=== PATIENT | female | born 1945 | race Caucasian/White ===

== ENCOUNTER 2018-09-17 11:15 | Observation (INO) | payer MEDICARE, MEDICAID ==
[2018-09-17 11:57] LABS: % LYMPHOCYTES 22.8 % (20.0-50.0); % MONOCYTES 4.3 % (2.0-10.0); % NEUTROPHILS 71.9 % (40.0-80.0); EOSINOPHILE ABSOLUTE 0.1 Th/cmm (0.1-0.4); HEMATOCRIT 40.4 % (41.0-60); HEMOGLOBIN 13.5 gm/dL (12-16); LYMPHOCYTE ABSOLUTE 1.8 Th/cmm (1.5-3.0); MEAN CELL VOLUME 94.6 fl (81-100); MEAN CORPUSCULAR HEMOGLOBIN 31.5 pg (27.0-31.0); MEAN CORPUSCULAR HGB CONC 33.3 pg (28.0-36.0); MONOCYTE ABSOLUTE 0.3 Th/cmm (0.3-1.0); NEUTROPHILE ABSOLUTE 5.5 Th/cmm (1.8-8.0); PLATELET COUNT 259 Th/cmm (150-400); RED BLOOD COUNT 4.27 Mil/cmm (3.80-5.20); RED CELL DISTRIBUTION WIDTH 13.8 % (11.5-20.0); WHITE BLOOD COUNT 7.7 Th/cmm (4.8-10.8)
--- NOTE | 2018-09-17 12:06 | ED Physician Chart ---
ED Chief Complaint/HPI - Patient Information Date Seen:: 09/17/18 Time Seen:: 11:25 Chief Complaint:: weakness History of Present Illness:: weakness Vitals:: Vital Signs - 8 hr 09/17/18 11:25 Temp 98.0 F HR 86 RR 20 BP 158/89 O2 Sat % 100 Historian:: Patient Review:: Nurse's Note Reviewed ED Review of Systems - Review of Systems General/Constitutional: No fever, No chills, No weight loss, No weakness, No diaphoresis, No edema, No loss of appetite Skin: No skin lesions, No rash, No bruising Head: No headache, No light-headedness Eyes: No loss of vision, No pain, No diplopia ENT: No earache, No nasal drainage, No sore throat, No tinnitus Neck: No neck pain, No swelling, No thyromegaly, No stiffness, No mass noted Cardio Vascular: No chest pain, No palpitations, No PND, No orthopnea, No edema Pulmonary: No SOB, No cough, No sputum, No wheezing GI: No nausea, No vomiting, No diarrhea, No pain, No melena, No hematochezia, No constipation, No hematemesis G/U: No dysuria, No frequency, No hematuria Musculoskeletal: No bone or joint pain, No back pain, No muscle pain Endocrine: No polyuria, No polydipsia Psychiatric: No prior psych history, No depression, No anxiety, No suicidal ideation Hematopoietic: No bruising, No lymphadenopathy Allergic/Immuno: No urticaria, No angioedema Neurological: No syncope, No focal symptoms, No weakness, No paresthesia, No headache, No seizure, No dizziness, No confusion, No vertigo ED Past Medical History - Past Medical History Obtainable: Yes Past Medical History: HTN, DM ED Physical Exam - Physical Examination General/Constitutional: Awake, Alert, No distress, GCS 15, Non-toxic appearing, Ambulatory Other Gen/Cons comments:: overweight patient. Head: Atraumatic Eyes: Lids, conjuctiva normal, PERRL, EOMI Skin: Nl inspection, No rash, No skin lesions, No ecchymosis, Well hydrated, No lymphadenopathy ENMT: External ears, nose nl Neck: Nontender, Full ROM w/o pain, No nuchal rigidity, No stridor Respiratory: Nl effort/Exclusion, Clear to Auscultation, No Wheeze/Rhonchi/Rales Cardio Vascular: RRR, No murmur, gallop, rubs, NL S1 S2 GI: No tenderness/rebounding/guarding, No organomegaly, No hernia, Normal BS's, Nondistended, No mass/bruits, No McBurney tenderness : No CVA tenderness Extremities: No tenderness or effusion, Full ROM, normal strength in all extremities, Normal digits & nails Other Extremities comments:: trace edema. no calf tenderness. Neuro/Psych: Alert/oriented, Normal sensory exam, Normal motor strength, Judgement/insight normal, Mood normal, Normal gait, No focal deficits Misc: Normal back, No paraspinal tenderness ED Labs/Radiology/EKG Results - Lab Results Results: Laboratory Tests 09/17/18 09/17/18 11:52 11:58 WBC 7.7 RBC 4.27 Hgb 13.5 Hct 40.4 L MCV 94.6 MCH 31.5 H MCHC Differential 33.3 RDW 13.8 Plt Count 259 MPV 8.0 Neutrophils % 71.9 Lymphocytes % 22.8 Monocytes % 4.3 Eosinophils % 1.0 Basophils % 0.0 POC Glucose 229 H ED Assessment - Assessment General Assessment: Dr. Hahn called at 12 p.m. to admit patient for placement. EKG from 13:27:44 p.m. reveals normal sinus rhythm with a flipped t wave in V1. patient does not have her list of meds. I informed Dr. Hahn who told me that he would make sure that we received a list. No list. We called [facility] pharmacy to find out a list of her medications and they told the nurse that they were actively out at lunch at 1:[address] Hahn came by at 2:10 p.m. and said to admit the patient to med/surg. He said that her medications are Metformin 500 mg po bid; aspirin and Losartan 50 mg po q day. ED Septic Shock - . Is Septic Shock (SBP<90, OR Lactate>4 mmol\L) present?: No - <6hrs of presentation: Vital Signs: Vital Signs - 8 hr 09/17/18 11:25 Temp 98.0 F HR 86 RR 20 BP 158/89 O2 Sat % 100 ED Reassessment (Disposition) - Reassessment Reassessment Condition:: Unchanged - Diagnosis Diagnosis:: Weakness Diabetes mellitus Hypertension Low magnesium Elevated bilirubin Elevated AST Elevated alk phos Proteinuria Ketones in urine Urobilinogen in urine - Patient Disposition Discharge/Transfer:: Acute Care w/in this hosp Admitted to:: Med/Surg Condition at Disposition:: Stable, Unchanged
[2018-09-17 12:23] LABS: ALB/GLOB RATIO 0.9 (1.0-1.8); ALBUMIN 3.5 gm/dL (3.7-5.3); ALKALINE PHOSPHATASE 135 U/L (34-104); ANION GAP 14.6 (7.0-16.0); BILIRUBIN,TOTAL 1.3 mg/dL (0.3-1.0); BUN - UREA NITROGEN 23 mg/dL (7-25); CALCIUM SERUM 9.6 mg/dL (8.6-10.3); CARBON DIOXIDE 25.5 mEq/L (21.0-31.0); CHLORIDE 102 mEq/L (98-107); CREATININE - SERUM 0.9 mg/dL (0.6-1.2); GLUCOSE 234 mg/dL (70-105); MAGNESIUM 1.8 mg/dL (1.9-2.7); PHOSPHOROUS 3.6 mg/dL (2.5-5.0); POTASSIUM SERUM 4.1 mEq/L (3.5-5.1); SGOT 52 U/L (13-39); SGPT/ALT 51 U/L (7-52); SODIUM SERUM 138 mEq/L (136-145); TOTAL PROTEIN,SERUM 7.4 gm/dL (6.0-8.3)
[2018-09-17] MEDS ORDERED: Maalox 30 mL Cup PO ONE (12:26)
[2018-09-17 13:29] LABS: URINE BILIRUBIN NEGATIVE (NEGATIVE); URINE BLOOD TRACE (NEGATIVE); URINE GLUCOSE (UA) NEGATIVE (NEGATIVE); URINE KETONE 15 mg/dL (NEGATIVE); URINE LEUKOCYTE ESTERASE NEGATIVE (NEGATIVE); URINE MICROSCOPIC INDICATED? YES; URINE NITRATE NEGATIVE (NEGATIVE); URINE PROTEIN 100 mg/dL (NEGATIVE); URINE SOURCE CATH
[2018-09-17 13:32] LABS: URINE COLOR YELLOW
[2018-09-17 13:33] LABS: URINE CLARITY HAZY (CLEAR)
[2018-09-17 13:40] LABS: URINE BACTERIA FEW /hpf (NONE SEEN); URINE EPITHELIAL CELLS OCCASIONAL /lpf (FEW); URINE RBC 0-2 /hpf (0-5); URINE WBC 0-2 /hpf (0-5)
[2018-09-17 14:06] LABS: AMPHETAMINE URINE NEGATIVE (NEGATIVE); BARBITURATES URINE NEGATIVE (NEGATIVE); BENZODIAZEPINES QUAL URINE NEGATIVE (NEGATIVE); CANNABINOID THC NEGATIVE (NEGATIVE); COCAINE METABOLITE QUAL URINE NEGATIVE (NEGATIVE); METHADONE URINE NEGATIVE (NEGATIVE); METHAMPHETAMINES QUAL URINE NEGATIVE (NEGATIVE); OPIATES (MORPHINE) QUAL. URINE POSITIVE (NEGATIVE); PHENCYCLIDINE (PCP) URINE NEGATIVE (NEGATIVE); TRICYCLICS (TCA) QUAL. URINE NEGATIVE (NEGATIVE)
[2018-09-17] MEDS ORDERED: Maalox 30 mL Cup ONE (14:19)
[2018-09-17 15:02] VITALS: BP 122/57
[2018-09-17] MEDS ORDERED: Albuterol Nebulizer 2.5mg/3mL HHN PRN (17:01)
[2018-09-17] MEDS ORDERED: INSULIN ASPART SLIDING SCALE 100 UNITS/ML UNIT SUBQ SCH (18:00)
[2018-09-17] MEDS: INSULIN ASPART SLIDING SCALE 100 UNITS/ML UNIT SUBQ SCH ×2 (18:31→23:26)
[2018-09-17] MEDS: Sodium Chloride 0.9% 1,000 ML IV SCH (18:33)
[2018-09-17] MEDS ORDERED: Albuterol Nebulizer 2.5mg/3mL HHN SCH (19:00)
[2018-09-18 04:39] LABS: % BASOPHILS 0.3 % (0.0-2.0); % EOSINOPHILS 2.2 % (0.0-5.0); % NEUTROPHILS 59.5 % (40.0-80.0); EOSINOPHILE ABSOLUTE 0.2 Th/cmm (0.1-0.4); HEMATOCRIT 37.6 % (41.0-60); HEMOGLOBIN 12.1 gm/dL (12-16); LYMPHOCYTE ABSOLUTE 3.2 Th/cmm (1.5-3.0); MEAN CELL VOLUME 96.2 fl (81-100); MEAN CORPUSCULAR HEMOGLOBIN 30.9 pg (27.0-31.0); MEAN CORPUSCULAR HGB CONC 32.2 pg (28.0-36.0); MEAN PLATELET VOLUME 8.3 fl; MONOCYTE ABSOLUTE 0.4 Th/cmm (0.3-1.0); NEUTROPHILE ABSOLUTE 5.5 Th/cmm (1.8-8.0); PLATELET COUNT 240 Th/cmm (150-400); RED BLOOD COUNT 3.91 Mil/cmm (3.80-5.20); RED CELL DISTRIBUTION WIDTH 13.7 % (11.5-20.0)
[2018-09-18 05:13] LABS: WHITE BLOOD COUNT 9.3 Th/cmm (4.8-10.8)
[2018-09-18 05:25] LABS: ALB/GLOB RATIO 0.9 (1.0-1.8); ANION GAP 13.2 (7.0-16.0); BUN - UREA NITROGEN 23 mg/dL (7-25); CALCIUM SERUM 8.9 mg/dL (8.6-10.3); CARBON DIOXIDE 25.5 mEq/L (21.0-31.0); CHLORIDE 106 mEq/L (98-107); CREATININE - SERUM 0.8 mg/dL (0.6-1.2); POTASSIUM SERUM 3.7 mEq/L (3.5-5.1); SGOT 40 U/L (13-39); SODIUM SERUM 141 mEq/L (136-145); TOTAL PROTEIN,SERUM 6.3 gm/dL (6.0-8.3)
[2018-09-18 05:26] LABS: ALKALINE PHOSPHATASE 111 U/L (34-104); CHOLESTEROL 165 mg/dL (<200); HDL -HIGH DENSITY LIPOPROTEIN 46 mg/dL (23-92); SGPT/ALT 41 U/L (7-52); TRIGLYCERIDES 89 mg/dL (<150)
[2018-09-18 05:27] LABS: GLUCOSE 127 mg/dL (70-105)
[2018-09-18] MEDS: INSULIN ASPART SLIDING SCALE 100 UNITS/ML UNIT SUBQ SCH ×3 (06:19→17:48)
--- NOTE | 2018-09-18 07:49 | Diagnostic Imaging Report ---
CHEST X-RAY: AP view INDICATION: , Bilateral lower extremity edema, crackles COMPARISON: None FINDINGS: Chronic lung changes are seen with linear densities of the left lung. No focal consolidation or definite effusions. Heart size at the upper limits of normal. Degenerative changes of the spine and shoulders are noted. IMPRESSION: Linear densities of the left lung which may be due to subsegmental atelectasis versus scarring. No focal consolidation or evidence of alejandra CHF.
--- NOTE | 2018-09-18 08:28 | Diagnostic Imaging Report ---
Portable chest x-ray HISTORY: Shortness of breath Allowing for portable technique and a poor inspiration, the heart size appears normal. No focal pulmonary processes. No hilar or mediastinal abnormalities. IMPRESSION: 1. No acute abnormalities
[2018-09-18] MEDS: POLYETHYLENE GLYCOL 3350 17 GM PACK PO SCH ×3 (09:49→16:27)
--- NOTE | 2018-09-18 10:28 | Diagnostic Imaging Report ---
KUB abdominal film HISTORY: Pain, fecal impaction There is a mild to moderately distended stool-filled rectum. Bowel gas pattern otherwise nonspecific. No free intraperitoneal air. Surgical clips are seen in the right upper quadrant consistent with a prior cholecystectomy. IMPRESSION: 1. Mild to moderately distended stool-filled rectum
--- NOTE | 2018-09-18 15:48 | Consultation ---
DATE OF CONSULTATION: 09/17/2018 REFERRING PHYSICIAN: Dr. Hahn. Thank you very much Dr. Hanh for this consultation. HISTORY OF PRESENT ILLNESS: This is a 73-year-old female who was admitted for weakness, some shortness of breath and the patient was told has history of COPD. The patient denies any shortness of breath at this time. States her legs are getting weaker and not able to walk around much. PAST MEDICAL HISTORY: History of diabetes and hypertension. SOCIAL HISTORY: No smoking, drinking, drug use. REVIEW OF SYSTEMS: GENERAL: Some weakness and fatigue. CARDIOVASCULAR: No chest pain or palpitation. RESPIRATORY: Shortness of breath. GASTROINTESTINAL: No nausea or vomiting. PHYSICAL EXAMINATION: GENERAL: Awake, alert, not in acute distress. VITAL SIGNS: Temperature 97.2, pulse 74, respirations 18, blood pressure 140/70, saturation 90%. HEENT: Atraumatic, normocephalic. Pupils are equal and reactive to light and accommodation. Ears, nose and throat normal. NECK: Supple. No JVD. CHEST: There are breath sounds bilaterally, no wheezing or crackles. HEART: Regular. ABDOMEN: Soft. EXTREMITIES: No edema. LABORATORY DATA: WBC 7.7, hemoglobin 13.5 and 40.4, platelets 259. Sodium 138, potassium 4.0, BUN 23, creatinine 0.9, glucose 234, magnesium 1.8. Troponin is negative. IMPRESSION: This is a 73-year-old female with hypertension, diabetes, weakness and less likely has chronic obstructive pulmonary disease or asthma. PLAN: Agree with albuterol as needed for now. The patient is asymptomatic. We will continue Pulmonary supportive care. We will do a chest x-ray as well. We will follow the patient with you. Thank you very much for this consultation. JOB# [id number]
--- NOTE | 2018-09-18 16:31 | History & Physical ---
ADMIT DATE: 09/17/2018 HISTORY OF PRESENT ILLNESS: The patient is a very elderly female patient known to have history of hypertension, history of diabetes, history of asthma, history of COPD. The patient is on multiple medications, see the reconciliation sheet. She is complaining of severe weakness, confusion, was complaining of not being eating and the patient was sent to the Emergency Room, was admitted with failure to thrive and uncontrolled diabetes, hypertension, rule out UTI. PAST MEDICAL HISTORY: Hypertension, diabetes. PHYSICAL EXAMINATION: GENERAL: Alert, awake. The patient is somewhat confused. HEAD: Normal. ENT: Normal. NECK: Supple, nontender. LUNGS: Clear. CARDIOVASCULAR SYSTEM: S1, S2 heard. ABDOMEN: Soft. Bowel sounds are heard. CENTRAL NERVOUS SYSTEM: Decreased sensorium. LABORATORY DATA: EKG showed sinus rhythm, flipped T waves in V1. DIAGNOSES: Severe weakness, rule out acute coronary syndrome, diabetes, hypertension and low magnesium, elevated ALT as well as a history of asthma, history of chronic obstructive pulmonary disease. PLAN: The patient is being admitted and I will go ahead and do the workup and have Cardiology see the patient. I will follow the patient. JOB# [id number]
[2018-09-19] MEDS: Sodium Chloride 0.9% 1,000 ML IV SCH (00:41)
[2018-09-19] MEDS: INSULIN ASPART SLIDING SCALE 100 UNITS/ML UNIT SUBQ SCH ×4 (00:44→17:09)
--- NOTE | 2018-09-19 07:54 | Consultation ---
DATE OF CONSULTATION: 09/18/2018 INPATIENT GASTROINTESTINAL CONSULTATION CONSULTING PHYSICIAN: Dr. Hahn. REASON FOR CONSULTATION: Failure to thrive. HISTORY OF PRESENT ILLNESS: The patient is a 73-year-old female with reported medical history of type 2 diabetes, who was brought into the hospital by family members for apparent weakness at home. Of note, the history is very scant, the ER note is essentially empty and the patient is not able to give me much of the history. She does report that she came into the ER for an evaluation and there is report that she felt weak at home. The consult was placed for failure to thrive; however, the patient is eating 100% of her meals as per the nursing staff and she certainly does not appear emaciated. Her main complaint using a chemical sales representative to speak with her is constipation and she says she has not had a bowel movement in 2-3 days. She denies any abdominal pain, change in her bowel habits, vomiting, hematemesis or melena. PAST MEDICAL HISTORY: Type 2 diabetes. She denies other chronic illnesses at this time. PAST SURGICAL HISTORY: Reports a in the past. FAMILY HISTORY: Noncontributory. SOCIAL HISTORY: The patient lives at home. She does not smoke, drink or use illicit drugs. ALLERGIES: There are no reported allergies to medications. REVIEW OF SYSTEMS: A 12-point review of systems was performed with the patient and is negative other than the pertinent positives mentioned in the history of present illness. CURRENT MEDICATIONS: Include albuterol, Lasix, insulin, losartan, metformin, sodium chloride. PHYSICAL EXAMINATION: VITAL SIGNS: Blood pressure is 149/68, pulse 68 beats per minute, temperature 97.3, respiratory rate 12, oxygenation is 96%. GENERAL: The patient is lying flat in her back, alert and oriented x 3. She is in no apparent distress. HEAD, EARS, EYES, NOSE AND THROAT: Normocephalic and atraumatic appearing head. Pupils are equal and reactive to light. Extraocular muscles appear to be intact. There are moist mucous membranes. NECK: Supple. No JVD or thyromegaly or lymphadenopathy. CHEST: Clear to auscultation bilaterally. CARDIOVASCULAR: S1 and S2 are present, regular rate and rhythm. ABDOMEN: Obese, soft, nontender to palpation. There is no guarding or rebound. No fluid distention. EXTREMITIES: Nonpitting edema is noted bilaterally. Pulses are not present. SKIN: There is no obvious jaundice. LABORATORY DATA AND DIAGNOSTIC STUDIES: White blood cell count 9.3, hemoglobin 12.1, platelet count is 240. Sodium 141, BUN 23, creatinine 0.8. Total bilirubin is 1.0, AST 40, ALT 41. Urinalysis was performed, which was essentially negative. There is no abdominal imaging. IMPRESSION: This is a 73-year-old female with type 2 diabetes, brought into the hospital for weakness. 1. Reported weakness. 2. Constipation. 3. Reported failure to thrive. DISCUSSION: At this point, it is unclear to me why the patient is admitted to the hospital as she has been observed to be eating most of her meals and really has no pain at all or other symptoms to speak of. She does have some constipation and we can go ahead and get a KUB to look at this more carefully and start laxative therapy. She does not seem to need any sort of G-tube assistance as she is eating her meals and she has no blood in her stool or any GI symptoms whatsoever aside from the constipation. RECOMMENDATIONS: 1. We will get a KUB. 2. Start MiraLax b.i.d. 3. If there is a fecal impaction, we can do enemas. 4. Continue diet as tolerated. 5. Workup of the patient's weakness as per primary. Thank you for allowing me to participate in her care. Please call with any further questions. [facility]# [phone]
--- NOTE | 2018-09-19 08:25 | GI Progress Note ---
Subjective - Review of Systems Service Date: 09/19/18 Subjective: Doing well, had several BMs Objective - Results Result Diagrams: 09/18/18 04:10 09/18/18 04:10 Recent Labs: Laboratory Last Values WBC 9.3 Th/cmm (4.8-10.8) D 09/18/18 04:10 RBC 3.91 Mil/cmm (3.80-5.20) 09/18/18 04:10 Hgb 12.1 gm/dL (12-16) 09/18/18 04:10 Hct 37.6 % (41.0-60) L 09/18/18 04:10 MCV 96.2 fl (81-100) 09/18/18 04:10 MCH 30.9 pg (27.0-31.0) 09/18/18 04:10 MCHC Differential 32.2 pg (28.0-36.0) 09/18/18 04:10 RDW 13.7 % (11.5-20.0) 09/18/18 04:10 Plt Count 240 Th/cmm (150-400) 09/18/18 04:10 MPV 8.3 fl 09/18/18 04:10 Neutrophils % 59.5 % (40.0-80.0) 09/18/18 04:10 Lymphocytes % 34.0 % (20.0-50.0) 09/18/18 04:10 Monocytes % 4.0 % (2.0-10.0) 09/18/18 04:10 Eosinophils % 2.2 % (0.0-5.0) 09/18/18 04:10 Basophils % 0.3 % (0.0-2.0) 09/18/18 04:10 Sodium 141 mEq/L (136-145) 09/18/18 04:10 Potassium 3.7 mEq/L (3.5-5.1) 09/18/18 04:10 Chloride 106 mEq/L (98-107) 09/18/18 04:10 Carbon Dioxide 25.5 mEq/L (21.0-31.0) 09/18/18 04:10 Anion Gap 13.2 (7.0-16.0) 09/18/18 04:10 BUN 23 mg/dL (7-25) 09/18/18 04:10 Creatinine 0.8 mg/dL (0.6-1.2) 09/18/18 04:10 Est GFR ( Amer) TNP 09/18/18 04:10 Est GFR (Non-Af Amer) TNP 09/18/18 04:10 BUN/Creatinine Ratio 28.8 09/18/18 04:10 Glucose 127 mg/dL (70-105) H D 09/18/18 04:10 POC Glucose 126 MG/DL (70 - 105) H 09/19/18 06:23 Whole Bld Lactic Acid 1.36 mmol/L (0.60-1.99) 09/17/18 11:52 Calcium 8.9 mg/dL (8.6-10.3) 09/18/18 04:10 Phosphorus 3.6 mg/dL (2.5-5.0) 09/17/18 11:52 Magnesium 1.8 mg/dL (1.9-2.7) L 09/17/18 11:52 Total Bilirubin 1.0 mg/dL (0.3-1.0) 09/18/18 04:10 AST 40 U/L (13-39) H 09/18/18 04:10 ALT 41 U/L (7-52) 09/18/18 04:10 Alkaline Phosphatase 111 U/L (34-104) H 09/18/18 04:10 Troponin I < 0.01 ng/mL (0.01-0.05) L 09/17/18 11:52 B-Natriuretic Peptide 58.7 pg/mL (5.0-100.0) 09/18/18 04:10 Total Protein 6.3 gm/dL (6.0-8.3) 09/18/18 04:10 Albumin 3.0 gm/dL (3.7-5.3) L 09/18/18 04:10 Globulin 3.3 gm/dL 09/18/18 04:10 Albumin/Globulin Ratio 0.9 (1.0-1.8) L 09/18/18 04:10 Triglycerides 89 mg/dL (<150) 09/18/18 04:10 Cholesterol 165 mg/dL (<200) 09/18/18 04:10 LDL Cholesterol Direct 110 mg/dL (75-193) 09/18/18 04:10 HDL Cholesterol 46 mg/dL (23-92) 09/18/18 04:10 TSH 0.32 uIU/ml (0.34-5.60) L 09/18/18 04:10 Urine Source CATH 09/17/18 13:18 Urine Color YELLOW 09/17/18 13:18 Urine Clarity HAZY (CLEAR) 09/17/18 13:18 Urine pH 6.0 (4.6 - 8.0) 09/17/18 13:18 Ur Specific [place] 1.025 (1.005-1.030) 09/17/18 13:18 Urine Protein 100 mg/dL (NEGATIVE) H 09/17/18 13:18 Urine Glucose (UA) NEGATIVE mg/dL (NEGATIVE) 09/17/18 13:18 Urine Ketones 15 mg/dL (NEGATIVE) H 09/17/18 13:18 Urine Blood TRACE (NEGATIVE) 09/17/18 13:18 Urine Nitrate NEGATIVE (NEGATIVE) 09/17/18 13:18 Urine Bilirubin NEGATIVE (NEGATIVE) 09/17/18 13:18 Urine Urobilinogen 4.0 E.U./dL (0.2 - 1.0) H 09/17/18 13:18 Ur Leukocyte Esterase NEGATIVE (NEGATIVE) 09/17/18 13:18 Urine RBC 0-2 /hpf (0-5) 09/17/18 13:18 Urine WBC 0-2 /hpf (0-5) 09/17/18 13:18 Ur Epithelial Cells OCCASIONAL /lpf (FEW) 09/17/18 13:18 Urine Bacteria FEW /hpf (NONE SEEN) 09/17/18 13:18 Urine Mucus FEW /lpf (FEW) 09/17/18 13:18 Urine Opiates Screen POSITIVE (NEGATIVE) H 09/17/18 12:30 Urine Methadone Screen NEGATIVE (NEGATIVE) 09/17/18 12:30 Ur Barbiturates Screen NEGATIVE (NEGATIVE) 09/17/18 12:30 Ur Tricyclics Screen NEGATIVE (NEGATIVE) 09/17/18 12:30 Ur Phencyclidine Scrn NEGATIVE (NEGATIVE) 09/17/18 12:30 Amphetamines Screen NEGATIVE (NEGATIVE) 09/17/18 12:30 U Methamphetamines Scrn NEGATIVE (NEGATIVE) 09/17/18 12:30 U Benzodiazepines Scrn NEGATIVE (NEGATIVE) 09/17/18 12:30 U Cocaine Metab Screen NEGATIVE (NEGATIVE) 09/17/18 12:30 U Cannabinoids Screen NEGATIVE (NEGATIVE) 09/17/18 12:30 - Physical Exam Vitals and I&O: Vital Signs Temp 97.8 F 09/19/18 07:49 Pulse 84 09/19/18 08:12 Resp 20 09/19/18 08:12 BP 107/51 09/19/18 08:04 Pulse Ox 94 09/19/18 08:12 Intake & Output 09/18/18 09/19/18 09/19/18 18:59 06:59 18:59 Intake Total 1000 1550 Balance 1000 1550 Weight (lbs) 78.018 kg Intake: Intake, IV Amount 1000 Sodium Chloride 0.9% 1, 1000 000 ml @ 50 mls/hr IV . Q20H [facility] Rx#:[id number] Oral 1550 Other: # Voids 2 Weight Source Bedscale Active Medications: Current Medications Acetaminophen (Tylenol) 650 mg PO Q6H PRN PRN Reason: Pain (Mild) Stop: 11/17/18 12:56 Last Admin: 09/18/18 13:32 Dose: 650 mg Albuterol Sulfate (Albuterol 2.5mg/3ml Neb Ud) 2.5 mg HHN Q4HRT PRN PRN Reason: Congestion Stop: 11/16/18 18:59 Furosemide (Lasix) 40 mg PO DAILY [facility] Stop: 11/17/18 08:59 Last Admin: 09/18/18 08:59 Dose: 40 mg Sodium Chloride (Nacl 0.9%) 1,000 mls @ 50 mls/hr IV .Q20H [facility] Stop: 11/16/18 18:59 Last Admin: 09/19/18 00:41 Dose: 50 mls/hr Insulin Aspart (Novolog Insulin Sliding Scale) 0 units SUBQ Q6HR [facility]; Protocol Stop: 11/16/18 18:29 Last Admin: 09/19/18 06:27 Dose: Not Given Losartan Potassium (Cozaar) 50 mg PO DAILY [facility] Stop: 11/17/18 08:59 Last Admin: 09/19/18 08:04 Dose: Not Given Metformin HCl (Glucophage) 500 mg PO BIDWM [facility] Stop: 11/17/18 07:59 Last Admin: 09/18/18 17:48 Dose: 500 mg Polyethylene Glycol (Miralax) 17 gm PO BID [facility] Stop: 11/17/18 09:14 Last Admin: 09/18/18 16:27 Dose: 17 gm General: Alert, Oriented x3 HEENT: Atraumatic Neck: Supple Cardiovascular: Regular rate Abdomen: Bowel sounds, Soft, no Tender, no Hepatomegaly, no Splenomegaly, no Distended, no Rebound Psych/Mental Status: Mental status NL Assessment/Plan - Assessment Assessment: # Constipation # Mildly elevated transaminase # Weakness Pt responding to laxatives, and will have enema today. Colonoscopy can be performed as outpt Will get US and labs to eval the liver, but suspect the mild degree of transaminase elevation is due to fatty liver disease Plan: - laxatives - enema prn - US abdomen - viral and autoimmune serologies Stable from a GI perspective
[2018-09-19] MEDS: POLYETHYLENE GLYCOL 3350 17 GM PACK PO SCH ×2 (08:32→16:58)
--- NOTE | 2018-09-19 12:24 | Infectious Disease Prog Note ---
Infectious Disease Subjective - Review of Systems Service Date: 09/19/18 Subjective: No pain,no dysuria. no cough. Nochest pain, No abd pain. There is no new change, no fever. Infectious Disease Objective - Results Result Diagrams: 09/18/18 04:10 09/18/18 04:10 Recent Labs: Laboratory Last Values WBC 9.3 Th/cmm (4.8-10.8) D 09/18/18 04:10 RBC 3.91 Mil/cmm (3.80-5.20) 09/18/18 04:10 Hgb 12.1 gm/dL (12-16) 09/18/18 04:10 Hct 37.6 % (41.0-60) L 09/18/18 04:10 MCV 96.2 fl (81-100) 09/18/18 04:10 MCH 30.9 pg (27.0-31.0) 09/18/18 04:10 MCHC Differential 32.2 pg (28.0-36.0) 09/18/18 04:10 RDW 13.7 % (11.5-20.0) 09/18/18 04:10 Plt Count 240 Th/cmm (150-400) 09/18/18 04:10 MPV 8.3 fl 09/18/18 04:10 Neutrophils % 59.5 % (40.0-80.0) 09/18/18 04:10 Lymphocytes % 34.0 % (20.0-50.0) 09/18/18 04:10 Monocytes % 4.0 % (2.0-10.0) 09/18/18 04:10 Eosinophils % 2.2 % (0.0-5.0) 09/18/18 04:10 Basophils % 0.3 % (0.0-2.0) 09/18/18 04:10 Sodium 141 mEq/L (136-145) 09/18/18 04:10 Potassium 3.7 mEq/L (3.5-5.1) 09/18/18 04:10 Chloride 106 mEq/L (98-107) 09/18/18 04:10 Carbon Dioxide 25.5 mEq/L (21.0-31.0) 09/18/18 04:10 Anion Gap 13.2 (7.0-16.0) 09/18/18 04:10 BUN 23 mg/dL (7-25) 09/18/18 04:10 Creatinine 0.8 mg/dL (0.6-1.2) 09/18/18 04:10 Est GFR ( Amer) TNP 09/18/18 04:10 Est GFR (Non-Af Amer) TNP 09/18/18 04:10 BUN/Creatinine Ratio 28.8 09/18/18 04:10 Glucose 127 mg/dL (70-105) H D 09/18/18 04:10 POC Glucose 234 MG/DL (70 - 105) H 09/19/18 12:04 Whole Bld Lactic Acid 1.36 mmol/L (0.60-1.99) 09/17/18 11:52 Calcium 8.9 mg/dL (8.6-10.3) 09/18/18 04:10 Phosphorus 3.6 mg/dL (2.5-5.0) 09/17/18 11:52 Magnesium 1.8 mg/dL (1.9-2.7) L 09/17/18 11:52 Total Bilirubin 1.0 mg/dL (0.3-1.0) 09/18/18 04:10 AST 40 U/L (13-39) H 09/18/18 04:10 ALT 41 U/L (7-52) 09/18/18 04:10 Alkaline Phosphatase 111 U/L (34-104) H 09/18/18 04:10 Troponin I < 0.01 ng/mL (0.01-0.05) L 09/17/18 11:52 B-Natriuretic Peptide 58.7 pg/mL (5.0-100.0) 09/18/18 04:10 Total Protein 6.3 gm/dL (6.0-8.3) 09/18/18 04:10 Albumin 3.0 gm/dL (3.7-5.3) L 09/18/18 04:10 Globulin 3.3 gm/dL 09/18/18 04:10 Albumin/Globulin Ratio 0.9 (1.0-1.8) L 09/18/18 04:10 Triglycerides 89 mg/dL (<150) 09/18/18 04:10 Cholesterol 165 mg/dL (<200) 09/18/18 04:10 LDL Cholesterol Direct 110 mg/dL (75-193) 09/18/18 04:10 HDL Cholesterol 46 mg/dL (23-92) 09/18/18 04:10 TSH 0.32 uIU/ml (0.34-5.60) L 09/18/18 04:10 Urine Source CATH 09/17/18 13:18 Urine Color YELLOW 09/17/18 13:18 Urine Clarity HAZY (CLEAR) 09/17/18 13:18 Urine pH 6.0 (4.6 - 8.0) 09/17/18 13:18 Ur Specific [place] 1.025 (1.005-1.030) 09/17/18 13:18 Urine Protein 100 mg/dL (NEGATIVE) H 09/17/18 13:18 Urine Glucose (UA) NEGATIVE mg/dL (NEGATIVE) 09/17/18 13:18 Urine Ketones 15 mg/dL (NEGATIVE) H 09/17/18 13:18 Urine Blood TRACE (NEGATIVE) 09/17/18 13:18 Urine Nitrate NEGATIVE (NEGATIVE) 09/17/18 13:18 Urine Bilirubin NEGATIVE (NEGATIVE) 09/17/18 13:18 Urine Urobilinogen 4.0 E.U./dL (0.2 - 1.0) H 09/17/18 13:18 Ur Leukocyte Esterase NEGATIVE (NEGATIVE) 09/17/18 13:18 Urine RBC 0-2 /hpf (0-5) 09/17/18 13:18 Urine WBC 0-2 /hpf (0-5) 09/17/18 13:18 Ur Epithelial Cells OCCASIONAL /lpf (FEW) 09/17/18 13:18 Urine Bacteria FEW /hpf (NONE SEEN) 09/17/18 13:18 Urine Mucus FEW /lpf (FEW) 09/17/18 13:18 Urine Opiates Screen POSITIVE (NEGATIVE) H 09/17/18 12:30 Urine Methadone Screen NEGATIVE (NEGATIVE) 09/17/18 12:30 Ur Barbiturates Screen NEGATIVE (NEGATIVE) 09/17/18 12:30 Ur Tricyclics Screen NEGATIVE (NEGATIVE) 09/17/18 12:30 Ur Phencyclidine Scrn NEGATIVE (NEGATIVE) 09/17/18 12:30 Amphetamines Screen NEGATIVE (NEGATIVE) 09/17/18 12:30 U Methamphetamines Scrn NEGATIVE (NEGATIVE) 09/17/18 12:30 U Benzodiazepines Scrn NEGATIVE (NEGATIVE) 09/17/18 12:30 U Cocaine Metab Screen NEGATIVE (NEGATIVE) 09/17/18 12:30 U Cannabinoids Screen NEGATIVE (NEGATIVE) 09/17/18 12:30 - Physical Exam Vitals and I&O: Vital Signs Temp 98.2 F 09/19/18 11:37 Pulse 78 09/19/18 11:37 Resp 18 09/19/18 11:37 BP 117/69 09/19/18 11:37 Pulse Ox 97 09/19/18 11:37 Intake & Output 09/18/18 09/19/18 09/19/18 18:59 06:59 18:59 Intake Total 1000 1550 Balance 1000 1550 Weight (lbs) 78.018 kg Intake: Intake, IV Amount 1000 Sodium Chloride 0.9% 1, 1000 000 ml @ 50 mls/hr IV . Q20H [facility] Rx#:[id number] Oral 1550 Other: # Voids 2 Weight Source Bedscale Active Medications: Current Medications Acetaminophen (Tylenol) 650 mg PO Q6H PRN PRN Reason: Pain (Mild) Stop: 11/17/18 12:56 Last Admin: 09/19/18 10:51 Dose: 650 mg Albuterol Sulfate (Albuterol 2.5mg/3ml Neb Ud) 2.5 mg HHN Q4HRT PRN PRN Reason: Congestion Stop: 11/16/18 18:59 Furosemide (Lasix) 40 mg PO DAILY [facility] Stop: 11/17/18 08:59 Last Admin: 09/19/18 08:32 Dose: 40 mg Sodium Chloride (Nacl 0.9%) 1,000 mls @ 50 mls/hr IV .Q20H [facility] Stop: 11/16/18 18:59 Last Admin: 09/19/18 00:41 Dose: 50 mls/hr Insulin Aspart (Novolog Insulin Sliding Scale) 0 units SUBQ Q6HR [facility]; Protocol Stop: 11/16/18 18:29 Last Admin: 09/19/18 06:27 Dose: Not Given Losartan Potassium (Cozaar) 50 mg PO DAILY [facility] Stop: 11/17/18 08:59 Last Admin: 09/19/18 08:04 Dose: Not Given Metformin HCl (Glucophage) 500 mg PO BIDWM [facility] Stop: 11/17/18 07:59 Last Admin: 09/19/18 08:33 Dose: 500 mg Polyethylene Glycol (Miralax) 17 gm PO BID [facility] Stop: 11/17/18 09:14 Last Admin: 09/19/18 08:32 Dose: 17 gm General: no acute distress, well developed, well nourished HEENT: atraumatic, normocephalic, PERRLA, EOMI Neck: supple, no thyromegaly Cardiovascular: S1S2, regular Lungs: clear to auscultation bilaterally, clear to percussion Abdomen: soft, no tender, no distended Extremities: no cyanosis, no clubbing, no edema Neurological: awake, alert, oriented Skin: intact Infectious Disease Assmt/Plan - Assessment Assessment: 1. generalized weakness. 2. DM2, uncontrolled. 3. HTN. 4. Obesity. 5. Constipation. fecal impaction. - Plan Plan: Continue as per consultants. laxatives. us abdomen. Dc plan. Nutritional Asmnt/Malnutr-PDOC - Dietary Evaluation Malnutrition Findings (Please click <Entered> for more info): Nutritional Asmnt/Malnutrition Start: 09/18/18 17: 37 Text: Status: Complete Freq: Protocol: Document 09/18/18 17:37 CATALINA (Rec: 09/18/18 17:58 CATALINA [email or web address]) Nutritional Asmnt/Malnutrition Patient General Information Nutritional Screening High Risk Diagnosis weakness, FTT Pertinent Medical Hx/Surgical Hx HTN, DM, asthma, COPD Subjective Information Pt finished ~75% of lunch today at time of visit. Nursing staff present to translate d/t pt's nicaraguan speaking. Pt states she dislikes beef and pork and prefers to have fish and chicken. Pt states her appetite is good. Nursing noted PO intake: 100% of dinner last night after admit. Per MD note, pt has not had a BM for 1 week. Ht inputted as 5 inch w/ BMI 4640; spoke w/ MICHAEL Garcia who states pt's ht and wt will be reviewed. Currently will input pt's ht as 60 in for this assessment; will update. Current Diet Order/ Nutrition Support CCHO 60 gm Pertinent Medications lasix, novolog, glucophage, miralax, Nacl 0.9% Pertinent Labs 09/18: glucose 127, Alb 3.0, POC 146-190 09/17: glucose 234, Alb 3.5, POC 229-244, Mg 1.8 Nutritional Hx/Data Height 1.52 m Height (Calculated Centimeters) 152.4 Current Weight (lbs) 74.843 kg Weight (Calculated Kilograms) 74.8 Weight (Calculated Grams) 68678.7 [place] Body Weight 100 lb Body Mass Index (BMI) 32.2 Weight Status Obese GI Symptoms Last BM none noted Difficult in: None Food Allergies No Skin Integrity/Comment: non-pitting 1+ edema to lower extremity, intact, roxi 17 Current %PO Good (75-100%) Estimated Nutritional Goals BEE in Kcals: Adj wt of IBW Calories/Kcals/Kg 25-30 (based on adj wt 52.8 kg ) Kcals Calculated 9970-4554 Protein: Adj wt of IBW Protein g/k.0 Protein Calculated 53 g Fluid: ml 7296-9346 (1 ml/kcal) Nutritional Problem 1. Problem Problem Altered nutrition related lab values Etiology hyperglycemia, endocrine dysfunction Signs/Symptoms: glucose 127, POC 146-190 Malnutrition Alert Is there a minimum of two criteria No selected? Query Text:Check all the applicable criteria. A minimum of two criteria are recommended for diagnosis of either severe or non-severe malnutrition. Malnutrition Related to Morbid Obesity Malnutrition related to morbid obesity No Intervention/Recommendation Comments 1. Start low Na 2 gm diet d/t elevated BP and presence of edema 2. Consider modify CCHO diet to 45 gm d/t pt's kcal needs. MD to manage insulin regimen for optimal glycemic control 3. Monitor PO intake, wt, labs and skin integrity 4. F/U as moderate risk in 3-5 days, 09/21-09/23 Expected Outcomes/Goals Expected Outcomes/Goals 1. PO intake to continue meeting at least 75% of all meals 2. Wt stability, edema to dissipate, and nutrition related labs to approach normal limits Reviewed by Meagan Cortez RD
--- NOTE | 2018-09-19 14:03 | Internal Medicine Prog Note ---
Internal Medicine Subjective - Subjective Service Date: 09/19/18 Patient seen and examined:: with staff Patient is:: awake, verbal Per staff patient has:: tolerating meds Internal Medicine Objective - Results Result Diagrams: 09/18/18 04:10 09/18/18 04:10 Recent Labs: Laboratory Last Values WBC 9.3 Th/cmm (4.8-10.8) D 09/18/18 04:10 RBC 3.91 Mil/cmm (3.80-5.20) 09/18/18 04:10 Hgb 12.1 gm/dL (12-16) 09/18/18 04:10 Hct 37.6 % (41.0-60) L 09/18/18 04:10 MCV 96.2 fl (81-100) 09/18/18 04:10 MCH 30.9 pg (27.0-31.0) 09/18/18 04:10 MCHC Differential 32.2 pg (28.0-36.0) 09/18/18 04:10 RDW 13.7 % (11.5-20.0) 09/18/18 04:10 Plt Count 240 Th/cmm (150-400) 09/18/18 04:10 MPV 8.3 fl 09/18/18 04:10 Neutrophils % 59.5 % (40.0-80.0) 09/18/18 04:10 Lymphocytes % 34.0 % (20.0-50.0) 09/18/18 04:10 Monocytes % 4.0 % (2.0-10.0) 09/18/18 04:10 Eosinophils % 2.2 % (0.0-5.0) 09/18/18 04:10 Basophils % 0.3 % (0.0-2.0) 09/18/18 04:10 Sodium 141 mEq/L (136-145) 09/18/18 04:10 Potassium 3.7 mEq/L (3.5-5.1) 09/18/18 04:10 Chloride 106 mEq/L (98-107) 09/18/18 04:10 Carbon Dioxide 25.5 mEq/L (21.0-31.0) 09/18/18 04:10 Anion Gap 13.2 (7.0-16.0) 09/18/18 04:10 BUN 23 mg/dL (7-25) 09/18/18 04:10 Creatinine 0.8 mg/dL (0.6-1.2) 09/18/18 04:10 Est GFR ( Amer) TNP 09/18/18 04:10 Est GFR (Non-Af Amer) TNP 09/18/18 04:10 BUN/Creatinine Ratio 28.8 09/18/18 04:10 Glucose 127 mg/dL (70-105) H D 09/18/18 04:10 POC Glucose 234 MG/DL (70 - 105) H 09/19/18 12:04 Whole Bld Lactic Acid 1.36 mmol/L (0.60-1.99) 09/17/18 11:52 Calcium 8.9 mg/dL (8.6-10.3) 09/18/18 04:10 Phosphorus 3.6 mg/dL (2.5-5.0) 09/17/18 11:52 Magnesium 1.8 mg/dL (1.9-2.7) L 09/17/18 11:52 Total Bilirubin 1.0 mg/dL (0.3-1.0) 09/18/18 04:10 AST 40 U/L (13-39) H 09/18/18 04:10 ALT 41 U/L (7-52) 09/18/18 04:10 Alkaline Phosphatase 111 U/L (34-104) H 09/18/18 04:10 Troponin I < 0.01 ng/mL (0.01-0.05) L 09/17/18 11:52 B-Natriuretic Peptide 58.7 pg/mL (5.0-100.0) 09/18/18 04:10 Total Protein 6.3 gm/dL (6.0-8.3) 09/18/18 04:10 Albumin 3.0 gm/dL (3.7-5.3) L 09/18/18 04:10 Globulin 3.3 gm/dL 09/18/18 04:10 Albumin/Globulin Ratio 0.9 (1.0-1.8) L 09/18/18 04:10 Triglycerides 89 mg/dL (<150) 09/18/18 04:10 Cholesterol 165 mg/dL (<200) 09/18/18 04:10 LDL Cholesterol Direct 110 mg/dL (75-193) 09/18/18 04:10 HDL Cholesterol 46 mg/dL (23-92) 09/18/18 04:10 TSH 0.32 uIU/ml (0.34-5.60) L 09/18/18 04:10 Urine Source CATH 09/17/18 13:18 Urine Color YELLOW 09/17/18 13:18 Urine Clarity HAZY (CLEAR) 09/17/18 13:18 Urine pH 6.0 (4.6 - 8.0) 09/17/18 13:18 Ur Specific [place] 1.025 (1.005-1.030) 09/17/18 13:18 Urine Protein 100 mg/dL (NEGATIVE) H 09/17/18 13:18 Urine Glucose (UA) NEGATIVE mg/dL (NEGATIVE) 09/17/18 13:18 Urine Ketones 15 mg/dL (NEGATIVE) H 09/17/18 13:18 Urine Blood TRACE (NEGATIVE) 09/17/18 13:18 Urine Nitrate NEGATIVE (NEGATIVE) 09/17/18 13:18 Urine Bilirubin NEGATIVE (NEGATIVE) 09/17/18 13:18 Urine Urobilinogen 4.0 E.U./dL (0.2 - 1.0) H 09/17/18 13:18 Ur Leukocyte Esterase NEGATIVE (NEGATIVE) 09/17/18 13:18 Urine RBC 0-2 /hpf (0-5) 09/17/18 13:18 Urine WBC 0-2 /hpf (0-5) 09/17/18 13:18 Ur Epithelial Cells OCCASIONAL /lpf (FEW) 09/17/18 13:18 Urine Bacteria FEW /hpf (NONE SEEN) 09/17/18 13:18 Urine Mucus FEW /lpf (FEW) 09/17/18 13:18 Urine Opiates Screen POSITIVE (NEGATIVE) H 09/17/18 12:30 Urine Methadone Screen NEGATIVE (NEGATIVE) 09/17/18 12:30 Ur Barbiturates Screen NEGATIVE (NEGATIVE) 09/17/18 12:30 Ur Tricyclics Screen NEGATIVE (NEGATIVE) 09/17/18 12:30 Ur Phencyclidine Scrn NEGATIVE (NEGATIVE) 09/17/18 12:30 Amphetamines Screen NEGATIVE (NEGATIVE) 09/17/18 12:30 U Methamphetamines Scrn NEGATIVE (NEGATIVE) 09/17/18 12:30 U Benzodiazepines Scrn NEGATIVE (NEGATIVE) 09/17/18 12:30 U Cocaine Metab Screen NEGATIVE (NEGATIVE) 09/17/18 12:30 U Cannabinoids Screen NEGATIVE (NEGATIVE) 09/17/18 12:30 - Physical Exam Vitals and I&O: Vital Signs Temp 98.2 F 09/19/18 11:37 Pulse 78 09/19/18 11:37 Resp 18 09/19/18 11:37 BP 117/69 09/19/18 11:37 Pulse Ox 97 09/19/18 11:37 Intake & Output 09/18/18 09/19/18 09/19/18 18:59 06:59 18:59 Intake Total 1000 1550 Balance 1000 1550 Weight (lbs) 172 lb Intake: Intake, IV Amount 1000 Sodium Chloride 0.9% 1, 1000 000 ml @ 50 mls/hr IV . Q20H [facility] Rx#:[id number] Oral 1550 Other: # Voids 2 Weight Source Bedscale Active Medications: Current Medications Acetaminophen (Tylenol) 650 mg PO Q6H PRN PRN Reason: Pain (Mild) Stop: 11/17/18 12:56 Last Admin: 09/19/18 10:51 Dose: 650 mg Albuterol Sulfate (Albuterol 2.5mg/3ml Neb Ud) 2.5 mg HHN Q4HRT PRN PRN Reason: Congestion Stop: 11/16/18 18:59 Furosemide (Lasix) 40 mg PO DAILY [facility] Stop: 11/17/18 08:59 Last Admin: 09/19/18 08:32 Dose: 40 mg Sodium Chloride (Nacl 0.9%) 1,000 mls @ 50 mls/hr IV .Q20H [facility] Stop: 11/16/18 18:59 Last Admin: 09/19/18 00:41 Dose: 50 mls/hr Insulin Aspart (Novolog Insulin Sliding Scale) 0 units SUBQ Q6HR [facility]; Protocol Stop: 11/16/18 18:29 Last Admin: 09/19/18 12:43 Dose: Not Given Losartan Potassium (Cozaar) 50 mg PO DAILY [facility] Stop: 11/17/18 08:59 Last Admin: 09/19/18 08:04 Dose: Not Given Metformin HCl (Glucophage) 500 mg PO BIDWM [facility] Stop: 11/17/18 07:59 Last Admin: 09/19/18 08:33 Dose: 500 mg Polyethylene Glycol (Miralax) 17 gm PO BID [facility] Stop: 11/17/18 09:14 Last Admin: 09/19/18 08:32 Dose: 17 gm General: alert HEENT: NC/AT, PERRLA Neck: Supple Lungs: CTAB Cardiovascular: RRR, Normal S1, Normal S2 Abdomen: soft, non-tender, non-distended, positive bowel sound Neurological: alert Internal Medicine Assmt/Plan - Assessment Assessment: generalized weakness. DM2, uncontrolled. HTN. Obesity. - Plan Plan: dc planning once cleared by GI cpm Nutritional Asmnt/Malnutr-PDOC - Dietary Evaluation Malnutrition Findings (Please click <Entered> for more info): Nutritional Asmnt/Malnutrition Start: 09/18/18 17: 37 Text: Status: Complete Freq: Protocol: Document 09/18/18 17:37 CATALINA (Rec: 09/18/18 17:58 CATALINA [email or web address]) Nutritional Asmnt/Malnutrition Patient General Information Nutritional Screening High Risk Diagnosis weakness, FTT Pertinent Medical Hx/Surgical Hx HTN, DM, asthma, COPD Subjective Information Pt finished ~75% of lunch today at time of visit. Nursing staff present to translate d/t pt's romanian speaking. Pt states she dislikes beef and pork and prefers to have fish and chicken. Pt states her appetite is good. Nursing noted PO intake: 100% of dinner last night after admit. Per MD note, pt has not had a BM for 1 week. Ht inputted as 5 inch w/ BMI 4640; spoke w/ RN Radha who states pt's ht and wt will be reviewed. Currently will input pt's ht as 60 in for this assessment; will update. Current Diet Order/ Nutrition Support CCHO 60 gm Pertinent Medications lasix, novolog, glucophage, miralax, Nacl 0.9% Pertinent Labs 09/18: glucose 127, Alb 3.0, POC 146-190 09/17: glucose 234, Alb 3.5, POC 229-244, Mg 1.8 Nutritional Hx/Data Height 5 ft Height (Calculated Centimeters) 152.4 Current Weight (lbs) 165 lb Weight (Calculated Kilograms) 74.8 Weight (Calculated Grams) 65666.7 [place] Body Weight 100 lb Body Mass Index (BMI) 32.2 Weight Status Obese GI Symptoms Last BM none noted Difficult in: None Food Allergies No Skin Integrity/Comment: non-pitting 1+ edema to lower extremity, intact, roxi 17 Current %PO Good (75-100%) Estimated Nutritional Goals BEE in Kcals: Adj wt of IBW Calories/Kcals/Kg 25-30 (based on adj wt 52.8 kg ) Kcals Calculated 2000-5577 Protein: Adj wt of IBW Protein g/k.0 Protein Calculated 53 g Fluid: ml 5014-8375 (1 ml/kcal) Nutritional Problem 1. Problem Problem Altered nutrition related lab values Etiology hyperglycemia, endocrine dysfunction Signs/Symptoms: glucose 127, POC 146-190 Malnutrition Alert Is there a minimum of two criteria No selected? Query Text:Check all the applicable criteria. A minimum of two criteria are recommended for diagnosis of either severe or non-severe malnutrition. Malnutrition Related to Morbid Obesity Malnutrition related to morbid obesity No Intervention/Recommendation Comments 1. Start low Na 2 gm diet d/t elevated BP and presence of edema 2. Consider modify CCHO diet to 45 gm d/t pt's kcal needs. MD to manage insulin regimen for optimal glycemic control 3. Monitor PO intake, wt, labs and skin integrity 4. F/U as moderate risk in 3-5 days, 09/21-09/23 Expected Outcomes/Goals Expected Outcomes/Goals 1. PO intake to continue meeting at least 75% of all meals 2. Wt stability, edema to dissipate, and nutrition related labs to approach normal limits Reviewed by Meagan Cortez RD
[2018-09-20] MEDS: INSULIN ASPART SLIDING SCALE 100 UNITS/ML UNIT SUBQ SCH ×3 (00:25→12:10)
[2018-09-20] MEDS: POLYETHYLENE GLYCOL 3350 17 GM PACK PO SCH (08:20)
--- NOTE | 2018-09-20 08:40 | Diagnostic Imaging Report ---
Ultrasound abdomen HISTORY: Elevated liver function tests COMPARISON: KUB performed on 09/18/2018 Technique: Sonography of the abdomen was performed in multiple planes. FINDINGS: Exam is limited due to bowel gas The liver demonstrates normal echogenicity. The liver margins are not well-defined however no obvious focal lesions identified. The liver measures 14.3 cm. The gallbladder was not visualized. The common bile duct measures 3 mm. Evaluation of the pancreas is limited due to bowel gas. The right kidney measures 10.6 x 4.6 cm. No evidence of focal lesions or hydronephrosis. The left kidney measures 11.2 x 5.0 cm. No evidence of focal lesions or hydronephrosis. The spleen measures 8.9 cm. IMPRESSION: Limited exam due to bowel gas The gallbladder was not visualized. Note, patient has cholecystectomy clips seen on recent KUB examination. No evidence of hepatomegaly.
--- NOTE | 2018-09-20 14:16 | Discharge Summary ---
DATE OF DISCHARGE: 09/20/2018 COVERING FOR: Dr. Hahn. HISTORY OF PRESENT ILLNESS AND HOSPITAL COURSE: The patient is a 73-year-old female with a past medical history of hypertension, diabetes mellitus type 2, asthma, COPD, admitted to the hospital for generalized weakness. Basal level was performed and the patient was stable to be discharged. On the family request, patient was discharged to nursing facility. DISCHARGE DIAGNOSES: 1. Diabetes mellitus type 2. 2. Hypertension. 3. Generalized weakness. 4. Obesity. 5. Constipation. 6. Fecal impaction. PLAN DISCHARGE DISPOSITION: Nursing facility under Dr. Hahn. MEDICATIONS: As per medication reconciliation sheet. DISCHARGE CONDITION: Stable. Dr. Hahn will take care of the patient at nursing facility. JOB# [id number]
[2018-09-22 14:22] LABS: AFP TUMOR MARKER 4.5 ng/mL (0.0-8.3); CERULOPLASMIN 28.9 mg/dL (19.0-39.0); FERRITIN 170 ng/mL (15-150); HEP A AB IGM Negative (Negative); HEP B CORE IGM Negative (Negative); HEP B SURFACE AG QL Negative (Negative); HEP C ANTIBODY <0.1 s/co ratio (0.0-0.9); IRON LC 75 ug/dL (27-139); MITOCHONDRIAL AB 9.8 Units (0.0-20.0); TIBC (LC) 280 ug/dL (250-450); UIBC 205 ug/dL (118-369)
== END 2018-09-20 12:50 ==
LOC: ER 11:15 → INTOOBSV 15:00 → MSI 15:00
PROVIDERS: ADMIT Internal Medicine; ATTEND Internal Medicine
DX: E11.9 Type 2 diabetes mellitus without complications (principal); R53.1 Weakness; J44.9 Chronic obstructive pulmonary disease, unspecified; J45.909 Unspecified asthma, uncomplicated; I10 Essential (primary) hypertension; R74.0 Nonspecific elevation of levels of transaminase and lactic acid dehydrogenase [LDH]; E83.42 Hypomagnesemia; R41.0 Disorientation, unspecified; K56.41 Fecal impaction; R62.7 Adult failure to thrive; E66.9 Obesity, unspecified; Z68.33 Body mass index [BMI] 33.0-33.9, adult; R53.83 Other fatigue; E80.6 Other disorders of bilirubin metabolism
CPT/HCPCS: 99285; 93005; 71045 ×2; 84484; 83880 ×2; 36415 ×2; 36416 ×12; 82948 ×12; 83605; 80307; 84443 ×2; 85025 ×2; 81001; 83036; 83735; 84100; 80053 ×2; 87081; 96360; 96361 ×3; 96372 ×4; 80061; 94760 ×3; 97162; 97116 ×3; 74018; 97110 ×2; 97530 ×2; 76700; 86255; 82105; 82390; 82728; 83550; 80074; 83540; J1815 ×4; G0378 ×70; G8978; G8979; 74000-TC; J7030; X3904; Z7502; Z7610